=== PATIENT | male | born 1985 | race African-American/Black ===

== ENCOUNTER 2017-07-01 09:24 | Inpatient (IN) ==
[2017-07-01] MEDS: ALBUTEROL 2.5 MG/3 ML NEB RESP TX SCH ×3 (10:27→10:46)
[2017-07-01] MEDS ORDERED: ACETAMINOPHEN 500 MG TABLET PO STA ×2 (10:27→16:35)
[2017-07-01] MEDS ORDERED: ACETAMINOPHEN 500 MG TABLET ONE ×2 (10:29→16:37)
[2017-07-01 10:40] LABS: Basophils % 0.3 % (0.0-0.8); Hematocrit 42.6 VOL% (42.0-52.0); Immature Granulocytes % 0.3 %; Immature Granulocytes Absolute 0.02 #; Lymphocytes # 0.4 10*3/uL (1.4-4.0); Lymphocytes % 5.8 % (21.2-54.2); Mean Corpuscular HGB Conc 32.9 GM/DL (32-36); Mean Corpuscular Hemoglobin 29 PG (27-34); Mean Corpuscular Volume 86.9 FL (87-102); Mean Platelet Volume 12.3 FL (9.6-12.0); Monocytes # 0.9 10*3/uL (0.11-0.8); Neutrophils # 5.3 10*3/uL (1.4-7.4); Neutrophils % 79.6 % (38.7-73.9); Platelet Count 130 T/CUMM (130-400); Red Cell Distribution Width 13.4 % (9.3-17.3); White Blood Count 6.6 T/CUMM (4-12)
[2017-07-01 10:51] LABS: Calcium 8.7 MG/DL (8.5-10.1); Osmolality,Calculated 277.5 MOS/KG (273-304); Potassium 3.6 MMOL/L (3.5-5.1)
[2017-07-01] MEDS ORDERED: SODIUM CHLORIDE 0.9% 1,000 ML IV STA (11:08)
[2017-07-01 12:47] LABS: VBG Base Excess -1.1 MEQ/L (0-4); VBG HCO3 18.7 MEQ/L (24-28); VBG Oxygen Saturation 99.1 %; VBG PCO2 20.7 MMHG (41-51); VBG PH 7.573; VBG PO2 202.9 MMHG (17-40)
[2017-07-01] MEDS ORDERED: ALBUTEROL/IPRATROPIUM 3 ML NEB RESP TX STA (14:38)
[2017-07-01] MEDS ORDERED: ALBUTEROL 2.5 MG/3 ML NEB RESP TX PRN (14:55)
[2017-07-01] MEDS ORDERED: guaiFENesin/DM ER 600-30 MG TABLET PO PRN (14:58)
[2017-07-01] MEDS: ALBUTEROL/IPRATROPIUM 3 ML NEB RESP TX SCH ×2 (14:58→20:07)
[2017-07-01] MEDS ORDERED: traZODone 50 MG TABLET PO PRN (14:58)
[2017-07-01] MEDS ORDERED: ACETAMINOPHEN 325 MG TABLET PO PRN (14:58)
[2017-07-01] MEDS ORDERED: ONDANSETRON 4 MG/2 ML VIAL IV PRN (14:58)
[2017-07-01] MEDS ORDERED: LEVOFLOXACIN INJ 750 MG in PREMIX 1 EACH IV SCH (15:00)
[2017-07-01] MEDS ORDERED: SODIUM CHLORIDE 0.9% 2,450 ML IV ONE (15:34)
[2017-07-01] MEDS ORDERED: ENOXAPARIN 40 MG/0.4 ML SYRINGE ONE (16:15)
[2017-07-01] MEDS ORDERED: methylPREDNISolone SOD SUC 125 MG/2 ML VIAL ONE (16:16)
[2017-07-01] MEDS ORDERED: PIPERACILLIN/TAZOBACTAM 3,375 MG VIAL IV ONE (16:16)
[2017-07-01] MEDS: methylPREDNISolone SOD SUC 125 MG/2 ML VIAL IV SCH ×2 (16:26→21:50)
[2017-07-01] MEDS: ENOXAPARIN 40 MG/0.4 ML SYRINGE SUBCUT SCH (16:27)
[2017-07-01] MEDS: SODIUM CHLORIDE 0.45% 1,000 ML IV SCH (16:28)
[2017-07-01] MEDS: PIPERACILLIN/TAZOBACTAM 3,375 MG in SODIUM CHLORIDE 0.9% 100 ML IV SCH (16:33)
[2017-07-01] MEDS: VANCOMYCIN INJ 1,250 MG in SODIUM CHLORIDE 0.45% 250 ML IV SCH (21:48)
[2017-07-01] MEDS: DOCUSATE SODIUM 100 MG CAPSULE PO SCH (21:51)
[2017-07-01] MEDS: OSELTAMIVIR 75 MG CAPSULE PO SCH (21:59)
[2017-07-01 23:22] LABS: Apearance,Urine CLEAR (Clear); Bilirubin,Urine Negative (Negative); Blood, Urine Negative (Negative); Glucose,Urine (UA) Negative (Negative); Ketones,Urine Negative (Negative); Nitrite,Urine Negative (Negative); Protein,Urine Negative; RBC,Urine <1 /HPF (0-4); Urine Color Yellow (Yellow); Urine Specific Gravity 1.009 (1.001-1.035); Urine Urobilinogen < 2.0 EU/DL (0.2-1.0)
[2017-07-02] MEDS: ALBUTEROL/IPRATROPIUM 3 ML NEB RESP TX SCH ×7 (00:15→23:07)
[2017-07-02] MEDS: PIPERACILLIN/TAZOBACTAM 3,375 MG in SODIUM CHLORIDE 0.9% 100 ML IV SCH ×4 (00:58→23:03)
[2017-07-02] MEDS: methylPREDNISolone SOD SUC 125 MG/2 ML VIAL IV SCH ×4 (03:00→20:53)
[2017-07-02 04:10] LABS: ABG Base Excess -2.5 MMOL/L (-2.5-2.5); ABG HCO3 22.3 MMOL/L (20-26); ABG Oxygen Saturation 98.1 % (95-100); ABG PCO2 34.9 MM HG (35-48)
[2017-07-02 07:13] LABS: Hematocrit 39.8 VOL% (42.0-52.0); Hemoglobin 13.1 GM/DL (14.0-18.0); Immature Granulocytes % 0.2 %; Immature Granulocytes Absolute 0.01 #; Lymphocytes # 0.4 10*3/uL (1.4-4.0); Lymphocytes % 6.1 % (21.2-54.2); Mean Corpuscular HGB Conc 32.9 GM/DL (32-36); Mean Corpuscular Hemoglobin 28 PG (27-34); Mean Corpuscular Volume 86.3 FL (87-102); Mean Platelet Volume 12.2 FL (9.6-12.0); Monocytes # 0.2 10*3/uL (0.11-0.8); Monocytes % 3.1 % (1.7-12.7); Neutrophils # 5.3 10*3/uL (1.4-7.4); Neutrophils % 90.6 % (38.7-73.9); Platelet Count 130 T/CUMM (130-400); Red Blood Count 4.61 MC/CUMM (3.8-5.5); Red Cell Distribution Width 13.5 % (9.3-17.3); White Blood Count 5.9 T/CUMM (4-12)
[2017-07-02 07:50] LABS: Albumin 3.4 G/DL (3.4-5.0); Bilirubin,Total 0.5 MG/DL (0.2-1.0); Calcium 8.4 MG/DL (8.5-10.1); Osmolality,Calculated 280.5 MOS/KG (273-304); Potassium 3.9 MMOL/L (3.5-5.1); Total Protein 6.5 G/DL (6.4-8.3)
[2017-07-02 08:13] LABS: Band Neutrophils 4 % (0-10); Lymphocytes 8 % (20-55); Segmented Neutrophils 86 % (50-85); Total Cells Counted 100
[2017-07-02 08:14] LABS: Hypochromasia 1+; Platelet Estimate Adequate
[2017-07-02] MEDS: PANTOPRAZOLE 40 MG TABLET PO SCH (10:06)
[2017-07-02] MEDS: SODIUM CHLORIDE 0.45% 1,000 ML IV SCH ×3 (10:07→22:36)
[2017-07-02] MEDS: DOCUSATE SODIUM 100 MG CAPSULE PO SCH ×2 (10:07→20:53)
[2017-07-02] MEDS: OSELTAMIVIR 75 MG CAPSULE PO SCH ×2 (10:07→20:53)
[2017-07-02] MEDS: VANCOMYCIN INJ 1,250 MG in SODIUM CHLORIDE 0.45% 250 ML IV SCH (14:45)
[2017-07-02] MEDS: ENOXAPARIN 40 MG/0.4 ML SYRINGE SUBCUT SCH (15:06)
[2017-07-02] MEDS ORDERED: AMINOPHYLLINE 250 MG in SODIUM CHLORIDE 0.9% 100 ML IV ONE (16:30)
[2017-07-02] MEDS: MONTELUKAST 10 MG TABLET PO SCH (17:30)
[2017-07-02] MEDS ORDERED: AMINOPHYLLINE 500 MG in SODIUM CHLORIDE 0.9% 480 ML IV SCH (19:30)
[2017-07-03] MEDS: ALBUTEROL/IPRATROPIUM 3 ML NEB RESP TX SCH ×5 (02:32→20:00)
[2017-07-03] MEDS: methylPREDNISolone SOD SUC 125 MG/2 ML VIAL IV SCH (03:25)
[2017-07-03] MEDS: VANCOMYCIN INJ 1,250 MG in SODIUM CHLORIDE 0.45% 250 ML IV SCH (03:26)
[2017-07-03] MEDS: SODIUM CHLORIDE 0.45% 1,000 ML IV SCH (06:27)
[2017-07-03] MEDS: DOCUSATE SODIUM 100 MG CAPSULE PO SCH ×2 (09:26→20:52)
[2017-07-03] MEDS: PANTOPRAZOLE 40 MG TABLET PO SCH (09:26)
[2017-07-03] MEDS: PIPERACILLIN/TAZOBACTAM 3,375 MG in SODIUM CHLORIDE 0.9% 100 ML IV SCH ×2 (09:27→16:44)
[2017-07-03] MEDS: MONTELUKAST 10 MG TABLET PO SCH (09:27)
[2017-07-03] MEDS: predniSONE 10 MG TABLET PO SCH ×2 (09:27→20:52)
[2017-07-03] MEDS: ENOXAPARIN 40 MG/0.4 ML SYRINGE SUBCUT SCH (15:28)
[2017-07-03] MEDS ORDERED: THEOPHYLLINE ER (24 HR) 400 MG CAPSULE PO SCH (17:00)
[2017-07-04] MEDS: PIPERACILLIN/TAZOBACTAM 3,375 MG in SODIUM CHLORIDE 0.9% 100 ML IV SCH ×2 (00:38→09:51)
[2017-07-04] MEDS: ALBUTEROL/IPRATROPIUM 3 ML NEB RESP TX SCH ×3 (00:58→08:08)
[2017-07-04] MEDS: MONTELUKAST 10 MG TABLET PO SCH (09:50)
[2017-07-04] MEDS: DOCUSATE SODIUM 100 MG CAPSULE PO SCH (09:50)
[2017-07-04] MEDS: predniSONE 10 MG TABLET PO SCH (09:50)
[2017-07-04] MEDS: PANTOPRAZOLE 40 MG TABLET PO SCH (09:50)
[2017-07-04 10:24] VITALS: BP 129/80
[2017-07-06 14:58] LABS: Procalcitonin, S 0.37 ng/mL (<=0.15)
== END 2017-07-04 12:45 | disposition home or self-care (01) | DRG 872 ==
LOC: N.ED 09:24 → SUATTDRO 14:54 → N.EDINP 14:54 → N.5E 16:53
PROVIDERS: ADMIT Internal Medicine Cardiovascular Disease; ATTEND Internal Medicine